=== PATIENT | female | born 1995 | race Caucasian/White ===

== ENCOUNTER → 2020-01-30 | Outpatient (CLI) | payer OTHER ==
[~2020-01-30] MED LIST: CATHETER FLUSH 10 ML SYR IV PRN; HOLD METFORMIN - RECEIVED CONTRAST 20 ML VIAL IV SCH; IOHEXOL 350 MG/ML 100 ML (OMNIPAQUE 350) VIAL IV ONE; NS 100 ML (IVPB) BAG IV ONE
--- NOTE | 2020-01-30 14:10 | Diagnostic Imaging Report ---
PROCEDURE: CT abdomen with and without contrast. TECHNIQUE: Multiple contiguous axial CT images of the abdomen were obtained prior to and after intravenous administration of iodinated contrast. Auto Exposure Controls were utilized during the CT exam to meet ALARA standards for radiation dose reduction. INDICATION: Elevated DHEA levels and prolactin levels. COMPARISON: No prior studies are available for comparison. FINDINGS: Both the right and left adrenal glands appear to be normal in size. No adrenal mass or hyperplasia is identified. The lung bases are clear. No discrete liver mass is detected. Gallbladder is unremarkable. There is no biliary ductal dilatation. Pancreas and spleen are unremarkable. Multiple tiny 1-2 mm nonobstructing calculi are identified in both kidneys. No definite hydronephrosis is seen. Aorta is non-aneurysmal. No central retroperitoneal or mesenteric lymphadenopathy is seen. The small and large bowel loops are normal caliber. There is no obstruction. There is no ascites. Bony structures are nonacute. IMPRESSION: 1. Bilateral nonobstructing nephrolithiasis. 2. No evidence of adrenal mass or adrenal hyperplasia. Dictated by: Dictated on workstation # [id number]
== END ==
LOC: RAD 12:53
DX: N20.0 Calculus of kidney (principal); E27.8 Other specified disorders of adrenal gland
CPT/HCPCS: 74170